=== PATIENT | female | born 1965 | race African-American/Black ===

== ENCOUNTER 2021-03-06 12:21 | Emergency (ER) | payer MEDICAID ==
[~2021-03-06] VITALS: Ht 165.1 cm; Wt 73.0 kg
[~2021-03-06 12:21] MED LIST: BENA20TA10 PO; METF-414 PO
[2021-03-06] MEDS ORDERED: ATIVAN (12:27)
[2021-03-06 12:28] VITALS: BP 128/79
[2021-03-06] MEDS ORDERED: ACETAMINOPHEN 325MG TABLET PO ONE (13:15)
[2021-03-06] MEDS ORDERED: BACITRACIN ZINC OINT UDPKT TOP ONE (13:15)
[2021-03-06] MEDS ORDERED: TETANUS, DIPHTHERIA, PERTUSSIS VAC/PF 0.5ML (>7YR OLD) IM ONE (13:15)
[2021-03-06] MEDS ORDERED: LIDOCAINE HCL/EPINEPHRINE 1%-EPI 1:100,000 20 ML VIAL INFIL ONE (14:30)
[2021-03-06] MEDS ORDERED: ACET-2708 MT (15:26)
== END 2021-03-06 15:40 | disposition home or self-care (01) ==
LOC: ER 12:21
DX: S01.01XA Laceration without foreign body of scalp, initial encounter (principal); E11.9 Type 2 diabetes mellitus without complications; I10 Essential (primary) hypertension; W01.118A Fall on same level from slipping, tripping and stumbling with subsequent striking against other sharp object, initial encounter; Y93.89 Activity, other specified; Y92.488 Other paved roadways as the place of occurrence of the external cause; F41.9 Anxiety disorder, unspecified; Z79.899 Other long term (current) drug therapy; Z23 Encounter for immunization
CPT/HCPCS: 12002; 70450; 81025; 90471; 90715; 99284; Z7610

== ENCOUNTER 2023-12-02 19:54 | Inpatient (IN) | payer MEDICAID, OTHER ==
[~2023-12-02] VITALS: Ht 165.1 cm; Wt 65.3 kg
[~2023-12-02 19:54] MED LIST changes: +ACET-2708 MT; +ATIVAN; +BENA-8 PO; -BENA20TA10 PO
[2023-12-02] MEDS: TETANUS, DIPHTHERIA, PERTUSSIS VAC/PF 0.5ML (>10YR OLD) IM ONE (21:40)
[2023-12-02] MEDS: HYDROCODONE/ACETAMINOPHEN 5/325MG TABLET PO ONE (21:41)
[2023-12-02] MEDS: CEFAZOLIN 1000MG PREMIX 50 ML IV ONE (21:41)
[2023-12-02] MEDS: SODIUM CHLORIDE 0.9% 500 ML IV ONE (21:41)
[2023-12-02 22:41] LABS: BASOPHILS % 0.7 % (0.0-2.0); EOSINOPHILS % 0.2 % (0.0-5.0); HEMATOCRIT. 37.9 % (36.0-48.0); HEMOGLOBIN. 12.6 g/dL (12.0-16.0); LYMPHOCYTES % 25.5 % (20.0-50.0); MEAN CORPUSCULAR HEMOGLOBIN 29.8 pg (28.0-32.0); MEAN CORPUSCULAR HGB CONC 33.2 g/dL (31.0-37.0); MEAN CORPUSCULAR VOLUME 89.6 fL (81.0-99.0); MEAN PLATELET VOLUME 7.1 fl (7.4-10.4); MONOCYTES % 7.1 % (2.0-8.0); NEUTROPHILS % 66.5 % (40.0-76.0); PLATELET 334 x1000/uL (130-400); RED BLOOD CELL COUNT 4.23 mill/uL (4.2-5.4); RED CELL DISTRIBUTION WIDTH 13.4 % (11.6-14.6); WHITE BLOOD COUNT 8.7 x1000/uL (4.5-11.0)
[2023-12-02 22:52] LABS: INR 0.9; PARTIAL THROMBOPLASTIN TIME 24.1 sec (23.4-31.0); PROTHROMBIN TIME 10.2 sec (9.6-11.0)
[2023-12-02 22:59] LABS: ALANINE AMINOTRANSFERASE 15 IU/L (10-49); ALBUMIN 4.8 g/dL (3.2-4.8); ASPARTATE AMINOTRANSFERASE 26 IU/L (<34); BILIRUBIN TOTAL 0.3 mg/dL (0.1-1.0); CARBON DIOXIDE 27 mEq/L (21-32); CHLORIDE 106 mEq/L (98-107); CREATININE 0.8 mg/dL (0.6-1.0); GLUCOSE 87 mg/dL (70-105); POTASSIUM 3.8 mEq/L (3.5-5.1); SODIUM 139 mEq/L (136-145); UREA NITROGEN BLOOD 11 mg/dL (9-23)
[2023-12-02] MEDS: CEFAZOLIN 1000MG PREMIX 50 ML IV SCH (23:21)
[2023-12-02] MEDS: SODIUM CHLORIDE 0.9% 1,000 ML IV ONE (23:21)
[2023-12-03] MEDS ORDERED: NALOXONE HCL 0.4MG/ML VIAL IV PRN (01:15)
[2023-12-03 02:00] VITALS: BP 182/87; PULSE 75; RESP 18; TEMP 97.5
[2023-12-03] MEDS ORDERED: HYDRALAZINE 10 MG in SODIUM CHLORIDE 0.9% 49.5 ML IV PRN (02:45)
[2023-12-03] MEDS: MORPHINE SULFATE 2 MG/ML CPJ (NOT FOR IM USE) IV NR (02:54)
[2023-12-03] MEDS ORDERED: DEXTROSE 50% WATER 50ML SYRINGE IV PRN (03:45)
[2023-12-03] MEDS: BLOOD SUGAR DIAGNOSTIC STRIP TEST SCH (07:20)
[2023-12-03] MEDS: INSULIN LISPRO 100 UNITS/ML SUBCUT SCH (07:50)
[2023-12-03 08:00] VITALS: BP 138/69; PULSE 74; RESP 18; TEMP 97.9
[2023-12-03] MEDS ORDERED: LIDOCAINE HCL 1% 10 MG/ML 10ML VIAL ONE (08:47)
[2023-12-03] MEDS ORDERED: VANCOMYCIN HCL 1 GM/VIAL ONE (08:47)
[2023-12-03] MEDS ORDERED: BUPIVACAINE HCL/PF 0.5% (5MG/ML) 10ML ONE (08:47)
[2023-12-03] MEDS ORDERED: POLYMYXIN B SULFATE 500000 UNITS/VIAL ONE (08:47)
[2023-12-03] MEDS: DEXT 5%/0.45% NACL 1000ML 1,000 ML IV SCH (09:29)
[2023-12-03] MEDS ORDERED: IBUPROFEN 600MG TABLET PO PRN (10:15)
[2023-12-03] MEDS ORDERED: METOCLOPRAMIDE HCL 10MG/2ML VIAL ONE (10:27)
[2023-12-03] MEDS ORDERED: LIDOCAINE HCL 1% 20ML VIAL (Pyxis) INJ ONE (10:27)
[2023-12-03] MEDS ORDERED: ONDANSETRON HCL 4MG/2ML INJ ONE (10:27)
[2023-12-03] MEDS ORDERED: CEFAZOLIN SODIUM 1000MG/VIAL ONE (10:27)
[2023-12-03] MEDS ORDERED: PROPOFOL 200MG/20ML VIAL IV ONE (10:27)
[2023-12-03] MEDS ORDERED: FENTANYL CITRATE/PF 50MCG/ML 2ML VIAL ONE ×2 (10:28→11:21)
[2023-12-03] MEDS ORDERED: SKIN ADHESIVE 0.7 GM EA TOP ONE (10:57)
[2023-12-03] MEDS: FENTANYL CITRATE/PF 50MCG/ML 2ML VIAL IV PRN (13:04)
[2023-12-03] MEDS: ACETAMINOPHEN 325MG TABLET PO SCH (13:42)
[2023-12-03 16:00] VITALS: BP 149/75; PULSE 70; RESP 19; TEMP 97.9
[2023-12-03] MEDS: CEFAZOLIN 2GM/100ML 100 ML IV SCH (17:34)
[2023-12-03] MEDS: HYDROMORPHONE HCL/PF 2MG/ML CPJ IV PRN (17:40)
[2023-12-03] MEDS ORDERED: TETANUS AND DIPHTHERIA TOX/PF 0.5ML SYR (ADULT) IM ONE (19:15)
[2023-12-03 20:00] VITALS: BP 138/46; PULSE 75; RESP 20; TEMP 97.6
[2023-12-03] MEDS: ZOLPIDEM TARTRATE 5MG TABLET PO PRN (22:10)
[2023-12-03] MEDS: HYDROCODONE/ACETAMINOPHEN 10/325MG TABLET PO PRN (22:11)
[2023-12-04] VITALS: BP 136/62; PULSE 73; RESP 20; TEMP 99.3
[2023-12-04 04:00] VITALS: BP 126/62; PULSE 91; RESP 20; TEMP 97.7
[2023-12-04 08:00] VITALS: BP 114/63; PULSE 68; RESP 68; TEMP 97.7
[2023-12-04 09:36] VITALS: RESP 68
[2023-12-04] MEDS ORDERED: HYDR-4001 MT (10:51)
[2023-12-04 11:27] VITALS: BP 114/63; PULSE 68; TEMP 97.7; O2SAT 100
== END 2023-12-04 15:29 | disposition home or self-care (01) | DRG 342 ==
LOC: ER 19:54 → 6EST 23:12 → EDBEDREQ 23:17 → EDBEDREQTM 23:17
PROVIDERS: ADMIT Internal Medicine; ATTEND Internal Medicine
PROC: 0QS Lower Bones, Reposition (ICD-10-PCS; principal; 2023-12-03)
DX: S92.512B Displaced fracture of proximal phalanx of left lesser toe(s), initial encounter for open fracture (principal); E78.00 Pure hypercholesterolemia, unspecified; I10 Essential (primary) hypertension; Z20.822 Contact with and (suspected) exposure to COVID-19; Z79.899 Other long term (current) drug therapy; V03.90XA Pedestrian on foot injured in collision with car, pick-up truck or van, unspecified whether traffic or nontraffic accident, initial encounter; Y93.89 Activity, other specified; Y92.89 Other specified places as the place of occurrence of the external cause; Y99.8 Other external cause status
CPT/HCPCS: 36415; 71045; 73630; 76000; 80053; 82962; 83036; 85025; 86850; 86900; 87426; 90715; 97116; 97161; 99285; C1713; J0690; J1170; J2270; J2405; J2704; J2765; J3010; J3370; J3490; J7030